=== PATIENT | female | born 1985 | race Caucasian/White ===

== ENCOUNTER → 2021-07-09 | Outpatient (CLI) | payer MEDICAID ==
[~2021-07-09] MED LIST: IBUP-2030 MT; IBUP-2030 PO
== END | disposition home or self-care (01) ==
LOC: LAB 09:29
PROVIDERS: ATTEND Obstetrics & Gynecology
DX: Z01.812 Encounter for preprocedural laboratory examination (principal); Z20.822 Contact with and (suspected) exposure to COVID-19
CPT/HCPCS: 87426

== ENCOUNTER 2021-07-10 07:22 | Inpatient (IN) | payer MEDICAID ==
[~2021-07-10] VITALS: Ht 167.6 cm; Wt 105.2 kg
[2021-07-10] MEDS ORDERED: LACTATED RINGERS 1,000 ML IV SCH (09:15)
[2021-07-10] MEDS ORDERED: CARBOPROST TROMETHAMINE 250 MCG/ML AMPUL IM PRN (09:15)
[2021-07-10] MEDS ORDERED: DEXT 5%/LR + PITOCIN 20UNITS/L 1,000 ML IV SCH ×2 (09:15→12:45)
[2021-07-10] MEDS ORDERED: METHYLERGONOVINE MALEATE 0.2 MG/ML IM PRN (09:15)
[2021-07-10 09:30] LABS: BASOPHILS % 0.2 % (0.0-2.0); EOSINOPHILS % 0.6 % (0.0-5.0); HEMATOCRIT. 32.5 % (36.0-48.0); HEMOGLOBIN. 11.2 g/dL (12.0-16.0); LYMPHOCYTES % 18.1 % (20.0-50.0); MEAN CORPUSCULAR HEMOGLOBIN 30.5 pg (28.0-32.0); MEAN CORPUSCULAR VOLUME 88.4 fL (81.0-99.0); MEAN PLATELET VOLUME 9.6 fl (7.4-10.4); MONOCYTES % 6.5 % (2.0-8.0); NEUTROPHILS % 74.6 % (40.0-76.0); PLATELET 177 x1000/uL (130-400); RED BLOOD CELL COUNT 3.67 mill/uL (4.2-5.4)
[2021-07-10] MEDS ORDERED: CITRIC ACID/SODIUM CITRATE SOLN 30ML UDC PO SCH (09:30)
[2021-07-10 09:41] LABS: CLARITY URINE CLOUDY (CLEAR); COLOR URINE DARK YELLOW (YELLOW); KETONES URINE TRACE (NEGATIVE); LEUKOCYTE ESTERASE URINE TRACE (NEGATIVE); NITRITE URINE NEGATIVE (NEGATIVE); OCCULT BLOOD URINE NEGATIVE (NEGATIVE); PROTEIN URINE TRACE (NEGATIVE); SPECIFIC GRAVITY URINE 1.024 (1.005-1.030)
[2021-07-10 09:55] LABS: *AMPHETAMINES SCREEN URINE NEGATIVE (NEGATIVE)
[2021-07-10 09:56] LABS: *BARBITURATES SCREEN URINE NEGATIVE (NEGATIVE); *BENZODIAZEPINES SCREEN URINE NEGATIVE (NEGATIVE); *COCAINE SCREEN URINE NEGATIVE (NEGATIVE); METHADONE URINE SCREEN NEGATIVE (NEGATIVE); OPIATES URINE SCREEN NEGATIVE (NEGATIVE); PHENCYCLIDINE URINE SCREEN NEGATIVE (NEGATIVE)
[2021-07-10 09:57] LABS: CANNABINOID URINE SCREEN NEGATIVE (NEGATIVE)
[2021-07-10] MEDS ORDERED: PHENYLEPHRINE HCL 10 MG/ML 1ML (IV VIAL) IV ONE ×2 (10:15→13:03)
[2021-07-10] MEDS ORDERED: CEFAZOLIN SODIUM 1000MG/VIAL ONE (10:15)
[2021-07-10] MEDS ORDERED: EPHEDRINE SULFATE 50MG/ML VIAL ONE (10:15)
[2021-07-10] MEDS ORDERED: ONDANSETRON HCL 4MG/2ML INJ ONE ×2 (10:15→13:26)
[2021-07-10] MEDS ORDERED: OXYTOCIN 10 UNITS/ML 1ML ONE (10:15)
[2021-07-10] MEDS ORDERED: FENTANYL CITRATE/PF 50MCG/ML 2ML VIAL ONE (10:15)
[2021-07-10] MEDS ORDERED: MORPHINE SULFATE/PF 1MG/ML 10ML AMP ONE (10:15)
[2021-07-10 11:02] LABS: INR 0.9; PARTIAL THROMBOPLASTIN TIME 22.4 sec (23.4-31.0); PROTHROMBIN TIME 10.1 sec (9.6-11.0)
[2021-07-10 11:45] LABS: HEPATITIS B SURFACE ANTIGEN NEGATIVE
[2021-07-10] MEDS ORDERED: BISACODYL 10MG SUPP PR PRN (12:45)
[2021-07-10] MEDS ORDERED: HYDROCODONE/ACETAMINOPHEN 5/325MG TABLET PO PRN (12:45)
[2021-07-10] MEDS ORDERED: IBUPROFEN 400MG TABLET PO PRN (12:45)
[2021-07-10] MEDS ORDERED: DIPHENHYDRAMINE 25MG CAPSULE PO PRN (12:45)
[2021-07-10] MEDS ORDERED: LANOLIN OINT 7GM TUBE TOP PRN (12:45)
[2021-07-10] MEDS ORDERED: KETOROLAC 60MG/2ML VIAL IM ONE (13:16)
[2021-07-10] MEDS ORDERED: DIPHENHYDRAMINE 50MG/ML VIAL ONE (13:16)
[2021-07-10] MEDS ORDERED: NALOXONE HCL 0.4 MG/ML 1ML VIAL IV PRN (13:30)
[2021-07-10] MEDS ORDERED: DIPHENHYDRAMINE 50MG/ML VIAL IV PRN (13:30)
[2021-07-10] MEDS ORDERED: BUTORPHANOL TARTRATE 2 MG/ML VIAL IV PRN (13:30)
[2021-07-10] MEDS ORDERED: KETOROLAC 30MG/ML VIAL IM SCH (13:30)
[2021-07-10] MEDS ORDERED: DEXT 5%/LR + PITOCIN 20UNITS/L 1,000 ML IV ONE (16:17)
[2021-07-10 17:08] VITALS: BP 127/60
[2021-07-10 20:00] VITALS: BP 104/55
[2021-07-10] MEDS: SIMETHICONE 80MG TABLET CHEW PO SCH (22:04)
[2021-07-10] MEDS: MAGNESIUM/ALUMINUM HYDROXIDE/SIMETHICONE 30ML UDC PO SCH (22:04)
[2021-07-10] MEDS: DOCUSATE SODIUM 100MG CAPSULE PO SCH (22:04)
[2021-07-11] VITALS: BP 107/54
[2021-07-11 04:00] VITALS: BP 105/64
[2021-07-11] MEDS: IBUPROFEN 800MG TABLET PO PRN ×4 (04:03→22:53)
[2021-07-11 06:53] LABS: BASOPHILS % 0.2 % (0.0-2.0); EOSINOPHILS % 0.4 % (0.0-5.0); HEMATOCRIT. 31.9 % (36.0-48.0); HEMOGLOBIN. 10.8 g/dL (12.0-16.0); LYMPHOCYTES % 10.6 % (20.0-50.0); MEAN CORPUSCULAR HEMOGLOBIN 30.3 pg (28.0-32.0); MEAN PLATELET VOLUME 9.8 fl (7.4-10.4); MONOCYTES % 7.3 % (2.0-8.0); NEUTROPHILS % 81.5 % (40.0-76.0); PLATELET 159 x1000/uL (130-400); RED BLOOD CELL COUNT 3.55 mill/uL (4.2-5.4); RED CELL DISTRIBUTION WIDTH 12.6 % (11.6-14.6)
[2021-07-11 08:00] VITALS: BP 115/63
[2021-07-11] MEDS: SIMETHICONE 80MG TABLET CHEW PO SCH ×4 (08:54→22:51)
[2021-07-11] MEDS: MAGNESIUM/ALUMINUM HYDROXIDE/SIMETHICONE 30ML UDC PO SCH ×4 (08:54→22:51)
[2021-07-11] MEDS ORDERED: PRENATAL VIT/FE FUMARATE/FA TABLET PO SCH (09:00)
[2021-07-11 20:00] VITALS: BP 120/72
[2021-07-11] MEDS: DOCUSATE SODIUM 100MG CAPSULE PO SCH (22:51)
[2021-07-12] MEDS ORDERED: TETANUS, DIPHTHERIA, PERTUSSIS VAC/PF 0.5ML (>7YR OLD) IM ONE (02:00)
[2021-07-12 04:00] VITALS: BP 128/55
[2021-07-12 07:50] VITALS: BP 128/71
[2021-07-12] MEDS: IBUPROFEN 800MG TABLET PO PRN ×2 (09:03→14:53)
[2021-07-12] MEDS: SIMETHICONE 80MG TABLET CHEW PO SCH ×2 (09:04→13:07)
[2021-07-12] MEDS: MAGNESIUM/ALUMINUM HYDROXIDE/SIMETHICONE 30ML UDC PO SCH ×2 (09:04→13:07)
[2021-07-12] MEDS ORDERED: IBUP-2030 MT (10:27)
[2021-07-12] MEDS ORDERED: IBUP-2030 PO (17:12)
== END 2021-07-12 18:00 | disposition home or self-care (01) | DRG 540 ==
LOC: 8 EST LDRP 07:22 → OBSVTOIN 07:22 → 8EST 16:00
PROVIDERS: ADMIT Obstetrics & Gynecology; ATTEND Obstetrics & Gynecology
PROC: 10D00Z1 Extraction of Products of Conception, Low, Open Approach (ICD-10-PCS; principal; 2021-07-10)
DX: O34.211 Maternal care for low transverse scar from previous cesarean delivery (principal); Z37.0 Single live birth; Z3A.39 39 weeks gestation of pregnancy
CPT/HCPCS: 36415; 80305; 81003; 85025; 86592; 86703; 86762; 86850; 86900; 87340; 88307; 90715; J0690; J1200; J1885; J2274; J2370; J2405; J2590; J3010; J3490; J7120